=== PATIENT | female | born 1995 | race Caucasian/White ===

== ENCOUNTER → 2018-10-13 | Outpatient (REF) | payer OTHER ==
[2018-10-13 22:48] LABS: CHLAMYDIA DNA AMPLIFICATION NEGATIVE (NEGATIVE); GC DNA AMPLIFICATION NEGATIVE (NEGATIVE)
== END ==
LOC: M SFHCLERA 15:46
DX: N89.8 Other specified noninflammatory disorders of vagina (principal)
CPT/HCPCS: 87591

== ENCOUNTER → 2018-12-01 | Outpatient (CLI) | payer OTHER ==
--- NOTE | 2018-12-02 05:46 | REP ---
Clinical: Pelvic pain and abnormal menstrual cycles . Technique: Transabdominal pelvic ultrasound followed by transvaginal examination for better evaluation of the endometrium and adnexa with color Doppler evaluation of the ovaries. Findings: Bladder is unremarkable and measures to a 0.6 x 3.8 x 5.4 cm . Normal anteverted uterus measures 8.4 x 3.5 x 4.8 cm . The endometrial complex measures 4.9 mm thickness. No discrete uterine or endometrial abnormalities are appreciated. Right ovary measures 3.7 x 2.5 x 3.7 cm with 2.1 cm dominant follicle ; R I = 0.60 . Left ovary not visualized. Small amount of free fluid in the posterior cul-de-sac likely physiologic. No adnexal mass lesion. Impression: 1. Normal uterus and right ovary. No torsion. 2. Left ovary not visualized. Electronically Signed by Esteban Sinclair MD 12/02/2018 05:38 A
== END ==
LOC: M RAD 10:28
PROVIDERS: ATTEND Family Medicine
DX: N94.4 Primary dysmenorrhea (principal)

== ENCOUNTER 2019-05-18 19:12 | Emergency (ER) | payer OTHER, SELFPAY ==
[~2019-05-18] VITALS: Ht 177.8 cm; Wt 65.9 kg
[2019-05-18] MEDS ORDERED: SERT-155 (19:18)
[2019-05-18] MEDS ORDERED: AUGM875T28 PO (20:28)
[2019-05-18 20:34] VITALS: BP 104/55
== END 2019-05-18 20:36 | disposition home or self-care (01) ==
LOC: M ED 19:12
DX: H66.93 Otitis media, unspecified, bilateral (principal); L73.9 Follicular disorder, unspecified

== ENCOUNTER → 2021-02-09 | Outpatient (REF) | payer OTHER ==
[~2021-02-09] MED LIST: AUGM875T28 PO; SERT50TA29
[2021-02-09 13:59] LABS: HEMATOCRIT 42.7 % (36.0-47.0); HEMOGLOBIN 14.2 g/dl (12.0-15.5); MEAN CORPUSCULAR HEMOGLOBIN 32.4 pg (27.0-33.0); MEAN CORPUSCULAR HGB CONC 33.3 g/dl (32.0-36.5); MEAN CORPUSCULAR VOLUME 97.5 fl (80.0-96.0); PLATELET COUNT, AUTOMATED 321 10^3/uL (150-450); RED BLOOD COUNT 4.38 10^6/uL (4.00-5.40); WHITE BLOOD COUNT 6.4 10^3/uL (4.0-10.0)
[2021-02-09 14:35] LABS: ALBUMIN 4.4 GM/DL (3.2-5.2); BILIRUBIN,TOTAL 1.3 MG/DL (0.2-1.0); CALCIUM LEVEL 9.6 MG/DL (8.5-10.1); CREATININE FOR GFR 1.23 MG/DL (0.55-1.30); FREE T4 1.06 NG/DL (0.76-1.46); GLOMERULAR FILTRATION RATE 57.6 (>60); POTASSIUM SERUM 4.3 MEQ/L (3.5-5.1); THYROID STIMULATING HORMONE 1.68 uIU/ML (0.358-3.740); TOTAL PROTEIN 7.3 GM/DL (6.4-8.2)
== END ==
LOC: M SFHCPLAZ 10:56
PROVIDERS: ATTEND Physician Assistant
DX: Z00.00 Encounter for general adult medical examination without abnormal findings (principal); F41.8 Other specified anxiety disorders

== ENCOUNTER 2021-04-19 07:14 | Emergency (ER) | payer OTHER ==
[~2021-04-19] VITALS: Ht 177.8 cm; Wt 77.3 kg
[2021-04-19] MEDS ORDERED: HYDR-3363 (07:21)
[2021-04-19] MEDS ORDERED: CITA20TA7 (07:21)
[2021-04-19] MEDS ORDERED: METR-265 (07:21)
[2021-04-19] MEDS ORDERED: ONDANSETRON 4MG/2ML VIAL IV ONE (07:30)
[2021-04-19] MEDS ORDERED: NS 1,000 ML IV ONE ×2 (07:35→09:40)
[2021-04-19] MEDS ORDERED: KETOROLAC 30 MG/ML 1ML VIAL IV ONE (07:40)
[2021-04-19 07:45] LABS: BASO % 0.4 % (0.0-1.0); EOS % 0.1 % (0.0-3.0); HEMATOCRIT 42.7 % (36.0-47.0); LYMPH # 1.4 10^3/uL (1.5-5.0); LYMPH % 12.2 % (24.0-44.0); MEAN CORPUSCULAR HEMOGLOBIN 32.5 pg (27.0-33.0); MEAN CORPUSCULAR HGB CONC 35.1 g/dl (32.0-36.5); MEAN CORPUSCULAR VOLUME 92.6 fl (80.0-96.0); MONO # 0.5 10^3/uL (0.0-0.8); MONO % 4.5 % (2.0-8.0); NEUTROPHILS # 9.1 10^3/uL (1.5-8.5); NEUTROPHILS % 82.3 % (36.0-66.0); PLATELET COUNT, AUTOMATED 341 10^3/uL (150-450); RED BLOOD COUNT 4.61 10^6/uL (4.00-5.40); WHITE BLOOD COUNT 11.1 10^3/uL (4.0-10.0)
[2021-04-19] MEDS ORDERED: DICYCLOMINE 10 MG CAP PO ONE (07:55)
[2021-04-19] MEDS ORDERED: ISOVUE-370 76% 100ML VIAL As Ordered ONE (08:07)
[2021-04-19] MEDS ORDERED: DICYCLOMINE INJ 20MG/2ML (J0500) IM ONE (08:10)
[2021-04-19 08:20] LABS: ALBUMIN 4.8 GM/DL (3.2-5.2); ALT/SGPT 22 U/L (12-78); BILIRUBIN,DIRECT 0.3 MG/DL (0.0-0.2); BILIRUBIN,TOTAL 1.4 MG/DL (0.2-1.0); LIPASE 83 U/L (73-393); TOTAL PROTEIN 8.2 GM/DL (6.4-8.2)
--- NOTE | 2021-04-19 08:36 | REP ---
INDICATION: abdominal pain. COMPARISON: None TECHNIQUE: Axial contrast-enhanced images from the lung bases to the pubic symphysis using 100 cc Isovue 370 intravenous contrast material. . This CT examination was performed using the following dose reduction techniques: Automated exposure control, adjustment of mA and/or kv according to the patient's size, and the use of iterative reconstruction technique. FINDINGS: Lung bases are clear. Visualized heart and pericardium normal. Liver, spleen, pancreas, gallbladder, bilateral adrenal glands and kidneys are normal. The enteric system including stomach, small, and large bowel appears normal. No evidence for obstruction or acute inflammatory process. Normal terminal ileum and appendix are identified in the right lower quadrant. Pelvis demonstrates normal bladder and age-appropriate uterus/adnexa. Subtle cystic changes to the ovaries and small amount of free fluid likely physiologic and possibly related to patient's symptoms. No significant ascites. No free air. No intraperitoneal or retroperitoneal adenopathy. Abdominal aorta and vasculature appear normal. Musculoskeletal structures are intact and without acute osseous abnormality. IMPRESSION: No acute abdominopelvic pathology appreciated. Changes in relation to the adnexa and small amount of fluid in the cul-de-sac likely physiologic and related to menstrual cycle, and possibly related to patient's symptoms. <Electronically signed by Esteban Sinclair > 04/19/21 [id number]
[2021-04-19] MEDS ORDERED: METOCLOPRAMIDE INJ 10MG/2ML VIAL (J2765 PER 1) IV ONE (08:50)
[2021-04-19] MEDS ORDERED: PANTOPRAZOLE 40MG VIAL (C9113 PER 1) IV ONE (08:50)
[2021-04-19 09:21] LABS: VENOUS BASE EXCESS 0.8 (-2.0-2.0); VENOUS HCO3 19.3 MEQ/L (23.0-27.0); VENOUS O2 SATURATION 82.6 % (60.0-80.0); VENOUS PARTIAL PRESSURE CO2 19.2 mmHg (38.0-50.0); VENOUS PARTIAL PRESSURE O2 38.6 mmHg (30.0-50.0); VENOUS PH 7.621 UNITS (7.330-7.430); VENOUS STANDARD HCO3 24.8 MEQ/L; VENOUS TOTAL CO2 19.9 MEQ/L (24.0-28.0)
[2021-04-19] MEDS ORDERED: hydrOXYzine 25 MG TAB PO STA (09:23)
[2021-04-19 09:27] LABS: HEMOGLOBIN A1c 4.9 %
[2021-04-19 09:33] LABS: CK-MB VALUE MASS 1.4 NG/ML (<3.6); CPK CREATINE PHOSPHOKINASE 214 U/L (26-192); MB/CK RELATIVE INDEX 0.65 (< OR =4); TROPONIN I < 0.02 NG/ML (< 0.10)
[2021-04-19] MEDS ORDERED: POTASSIUM CHLORIDE 10 MEQ SR TABLET PO ONE (09:40)
[2021-04-19] MEDS ORDERED: MORPHINE 2 MG/ML 1ML VIAL (J2270) IV ONE ×2 (10:30→11:45)
[2021-04-19 10:39] LABS: ACETONE/KETONE 7.27 MG/DL (<2.81)
[2021-04-19 12:03] VITALS: BP 101/62
[2021-04-19] MEDS ORDERED: POTA1TAB14 PO (12:14)
[2021-04-19] MEDS ORDERED: POTA20TA6 PO (12:14)
[2021-04-19 13:03] LABS: CHLAMYDIA DNA AMPLIFICATION NEGATIVE (NEGATIVE); GC DNA AMPLIFICATION NEGATIVE (NEGATIVE)
--- NOTE | 2021-04-19 19:50 | ECGEPIP ---
[facility] - ED Test Date: 2021-04-19 Pat Name: JACKY MAGUIRE Department: Room: - Gender: Female [employer]: : 1995 Requested By: CHECO Vargas PA-C Order Number: [id number] Reading MD: Dewayne Nation Measurements Intervals [place] Rate: 73 P: 54 NM: 148 QRS: 83 QRSD: 106 T: 37 QT: 454 QTc: 500 Interpretive Statements Sinus rhythm with marked sinus arrhythmia Prolonged QTc interval Comparison tracing not on file Electronically Signed on 04-19-2021 19:50:32 EDT by Dewayne Nation
== END 2021-04-19 12:51 | disposition home or self-care (01) ==
LOC: M ED 07:14
DX: R10.9 Unspecified abdominal pain (principal); R11.10 Vomiting, unspecified; R19.7 Diarrhea, unspecified; T50.6X5A Adverse effect of antidotes and chelating agents, initial encounter; F41.9 Anxiety disorder, unspecified; Z79.899 Other long term (current) drug therapy; Z87.42 Personal history of other diseases of the female genital tract
CPT/HCPCS: 74177; 80047; 80076; 81001; 82010; 82550; 82553; 82803; 83036; 83690; 84702; 85025; 87661; 93005; 96372; 96374; 96375; 96376; 99284; C9113; J0500; J1885; J2270; J2405; J2765; Q9967

== ENCOUNTER → 2021-11-26 | Outpatient (REF) | payer OTHER ==
[~2021-11-26] MED LIST changes: +CITA20TA7; +HYDR-3363; +METR-265; +POTA1TAB14 PO; +POTA20TA6 PO
== END ==
LOC: M LAB REF 14:09
PROVIDERS: ATTEND Physician Assistant
DX: D22.9 Melanocytic nevi, unspecified (principal)

== ENCOUNTER → 2022-04-04 | Outpatient (REF) | payer OTHER ==
[~2022-04-04] MED LIST changes: +POTA-151 PO; -POTA20TA6 PO
== END ==
LOC: M SFHCDERM 14:00
PROVIDERS: ATTEND Physician Assistant
DX: R21 Rash and other nonspecific skin eruption (principal)

== ENCOUNTER → 2022-07-09 | Outpatient (CLI) | payer OTHER | LOC: M LAB 15:02 | PROVIDERS: ATTEND Physician Assistant | DX: A69.20 Lyme disease, unspecified (principal) ==

== ENCOUNTER → 2024-08-09 | Outpatient (REF) | payer OTHER ==
[~2024-08-09] MED LIST changes: +POTA-298 PO; -POTA1TAB14 PO
[2024-08-09 21:43] LABS: Trichomonas vaginalis (AMP) NOT DETECTED (NEGATIVE)
[2024-08-09 22:08] LABS: GC DNA AMPLIFICATION NEGATIVE (NEGATIVE)
== END ==
LOC: M SFHCWAGY 17:32
PROVIDERS: ATTEND Nurse Practitioner Family
DX: N73.9 Female pelvic inflammatory disease, unspecified (principal)

== ENCOUNTER → 2024-10-12 | Outpatient (REF) | payer OTHER ==
[2024-10-12 20:34] LABS: Trichomonas vaginalis (AMP) NOT DETECTED (NEGATIVE)
[2024-10-12 20:58] LABS: GC DNA AMPLIFICATION NEGATIVE (NEGATIVE)
== END ==
LOC: M SFHCWAGY 16:43
PROVIDERS: ATTEND Obstetrics & Gynecology
DX: Z11.3 Encounter for screening for infections with a predominantly sexual mode of transmission (principal)